=== PATIENT | female | born 1985 | race Caucasian/White ===

== ENCOUNTER 2017-09-13 00:14 | Inpatient (IN) | payer BC ==
[2017-09-13 00:44] VITALS: BMI 25.8
[2017-09-13] MEDS ORDERED: Ondansetron HCl/PF 4 MG/2 ML Vial IVP PRN ×2 (01:07→08:22)
[2017-09-13] MEDS ORDERED: Promethazine HCl 25 MG/ML VIAL IM PRN (01:07)
[2017-09-13] MEDS ORDERED: Lidocaine 1% (PF) 30 ML VIAL SC PRN ×2 (01:07→01:08)
[2017-09-13] MEDS ORDERED: NS / Oxytocin 40 units/1000ml 1,000 ML IV PRN ×2 (01:07→01:08)
[2017-09-13] MEDS ORDERED: Ibuprofen 800 MG TAB PO PRN (01:08)
[2017-09-13] MEDS ORDERED: HYDROcodone/Acetaminophen 5/325 mg Tablet PO PRN ×2 (01:08)
[2017-09-13] MEDS ORDERED: Lactated Ringer's 1,000 ML IV SCH ×2 (01:15)
[2017-09-13 02:28] LABS: Mean Corpuscular HGB CONC 35.5 g/dL (32.0-36.0); Mean Corpuscular Hemoglobin 31.6 pg (27.0-31.0); Mean Platelet Volume 11.2 fL (7.4-10.4); Platelet Count 114 thou/uL (130-400); RBC Distribution Width 12.1 % (11.5-14.5); Red Blood Cell (RBC) Count 4.11 mill/uL (4.20-5.40); White Blood Cell (WBC) Count 13.5 thou/uL (4.8-10.8)
[2017-09-13 03:08] LABS: HBSAg Index 0.15 S/CO (0-0.99); Hep B Surf Ag Non-Reactive S/CO (NonReactive)
[2017-09-13 05:56] LABS: Syphilis Antibody Nonreactive (Nonreactive); Syphilis Antibody Index 0.03 S/CO (<1.00 Non-Reactive)
--- NOTE | 2017-09-13 07:26 | DN ---
DATE OF ENCOUNTER: 09/13/2017 DESCRIPTION OF PROCEDURE: The patient delivered a male on 09/13/2017 at 04:00 hours by an unc omplicated term spontaneous vaginal delivery. Apgars were 8 and 9. Weight is unavailable at the [facility] e of dictation. Placenta delivered spontaneously. There were no lacerations. Estimated blood loss is [address] Gutierrez is the delivering physician. Counts were correct. Mother and baby are stabl e in the immediate .
[2017-09-13] MEDS ORDERED: NS / Oxytocin 40 units/1000ml 1,000 ML IV SCH (08:22)
[2017-09-13] MEDS ORDERED: Ferrous Sulfate 325 MG TAB PO SCH ×2 (08:22→09:15)
[2017-09-13] MEDS ORDERED: Acetaminophen/Codeine 30-300mg Tablet PO PRN ×2 (08:22)
[2017-09-13] MEDS ORDERED: Lanolin Ointment 7 GM TUBE TOP PRN (08:22)
[2017-09-13] MEDS ORDERED: Ibuprofen 800 MG TAB PO SCH ×2 (08:22→09:15)
[2017-09-13] MEDS ORDERED: Benzocaine/Menthol 20-0.5% 60 ML CAN TOP PRN (08:22)
[2017-09-13] MEDS ORDERED: diphenhydrAMINE 25 MG CAP PO PRN (08:22)
[2017-09-13] MEDS ORDERED: Preparation H Ointment 28 GM TUBE PR PRN (08:22)
[2017-09-13] MEDS ORDERED: Bisacodyl 10 MG SUPP PR PRN (08:22)
[2017-09-13] MEDS ORDERED: Adacel (T-DAP) 0.5 ML VIAL IM ONE (08:22)
[2017-09-13] MEDS ORDERED: Milk Of Magnesia 30 ML UDCUP PO PRN (08:22)
[2017-09-13 09:16] LABS: HIV (1/2) Antibody/Antigen Non-Reactive (NonReactive); HIV 1/2 INDEX 0.22 S/CO (<1.00)
[2017-09-13] MEDS: Prenatal Vitamin 1 TAB PO SCH (09:26)
[2017-09-13] MEDS: Docusate Calcium (SURFAK) 240 MG CAP PO SCH ×2 (09:26→22:46)
[2017-09-13] MEDS: Ibuprofen 800 MG TAB PO SCH ×2 (13:24→22:46)
[2017-09-13] MEDS: Ferrous Sulfate 325 MG TAB PO SCH (15:34)
[2017-09-14 05:47] LABS: Hemoglobin 12.6 g/dL (12.0-16.0); Mean Corpuscular HGB CONC 34.2 g/dL (32.0-36.0); Mean Corpuscular Hemoglobin 30.9 pg (27.0-31.0); Mean Corpuscular Volume 90.3 fl (81.0-99.0); Mean Platelet Volume 10.6 fL (7.4-10.4); Platelet Count 103 thou/uL (130-400); RBC Distribution Width 12.6 % (11.5-14.5); Red Blood Cell (RBC) Count 4.08 mill/uL (4.20-5.40); White Blood Cell (WBC) Count 15.5 thou/uL (4.8-10.8)
[2017-09-14] MEDS: Ibuprofen 800 MG TAB PO SCH ×3 (05:56→21:12)
--- NOTE | 2017-09-14 07:27 | PDOC.PP ---
Post Progress Note Post Day #: 1 PO intake tolerated: yes Flatus: yes Ambulation: yes Vital Signs (12 hours) Temp Pulse Resp BP Pulse Ox 09/14/17 04:15 98.7 F 69 16 116/49 L 09/14/17 00:15 97.9 F 60 16 100/57 L 98 09/13/17 19:45 98.0 F 65 18 119/68 Weight Weight 165 lb - Physical Examination General: NAD Cardiovascular: no m/r/g, RRR Respiratory: clear to auscultation bilaterally, non-labored breathing Abdominal: + bowel sounds, lochia, no distention, appropriately TTP Result Diagrams: 09/14/17 05:05 Additional Labs: Post Labs Blood Type O POSITIVE 09/13/17 02:14 Hep Bs Antigen Non-Reactive S/CO (NonReactive) 09/13/17 02:14 - Assessment/Plan post day 1 doing well d/c today if baby ready
[2017-09-14] MEDS: Docusate Calcium (SURFAK) 240 MG CAP PO SCH ×2 (08:37→21:12)
[2017-09-14] MEDS: Prenatal Vitamin 1 TAB PO SCH (08:37)
[2017-09-14] MEDS: Ferrous Sulfate 325 MG TAB PO SCH ×2 (08:43→21:14)
[2017-09-15] MEDS: Ibuprofen 800 MG TAB PO SCH (05:33)
--- NOTE | 2017-09-15 07:48 | PDOC.PP ---
Post Progress Note Post Day #: 2 PO intake tolerated: yes Flatus: yes Ambulation: yes Vital Signs (12 hours) Temp Pulse Resp BP Pulse Ox 09/14/17 20:00 97.9 F 67 18 119/66 96 Weight Weight 165 lb - Physical Examination General: NAD Cardiovascular: no m/r/g, RRR Respiratory: clear to auscultation bilaterally, non-labored breathing Abdominal: + bowel sounds, lochia, no distention, appropriately TTP Result Diagrams: 09/14/17 05:05 Additional Labs: Post Labs Blood Type O POSITIVE 09/13/17 02:14 Hep Bs Antigen Non-Reactive S/CO (NonReactive) 09/13/17 02:14 - Assessment/Plan doing well post day 2 d/c home.f/u in 6 weeks
[2017-09-15 09:33] VITALS: BP 103/58; TEMP 98.2
[2017-09-15] MEDS: Ferrous Sulfate 325 MG TAB PO SCH (10:05)
[2017-09-15] MEDS: Prenatal Vitamin 1 TAB PO SCH (10:06)
[2017-09-15] MEDS: Docusate Calcium (SURFAK) 240 MG CAP PO SCH (10:06)
== END 2017-09-15 11:08 | disposition home or self-care (01) | DRG 775 ==
LOC: L&D/OP 00:14 → L&D 00:59 → 3SW 08:39
PROVIDERS: ADMIT Obstetrics & Gynecology; ATTEND Obstetrics & Gynecology
PROC: 10E0XZZ Delivery of Products of Conception, External Approach (ICD-10-PCS; principal; 2017-09-13)
DX: O69.81X0 Labor and delivery complicated by cord around neck, without compression, not applicable or unspecified (principal); Z3A.38 38 weeks gestation of pregnancy; Z37.0 Single live birth
CPT/HCPCS: 36415; 85027; 86780; 86850; 86900; 86901; 87340; 87389; 99285